=== PATIENT | female | born 1975 | race American Indian/Alaskan Native ===

== ENCOUNTER 2017-05-05 18:05 | Emergency (ER) | payer SELFPAY ==
[2017-05-05 18:47] LABS: Basophils # (Auto) 0.1 K/mm3 (0.0-0.1); Basophils % (Auto) 0.9 % (0.0-1.8); Eosinophils # (Auto) 0.3 K/mm3 (0.0-0.4); Eosinophils % (Auto) 3.2 % (0.0-4.3); Hematocrit 42.4 % (30.3-42.9); Hemoglobin 14.3 gm/dl (10.1-14.3); Lymphocytes % (Auto) 24.8 % (13.4-35.0); Mean Corpuscular HGB Conc 34 % (30-34); Mean Corpuscular Hemoglobin 32 pg (28-32); Mean Corpuscular Volume 96 fl (79-97); Monocytes # (Auto) 0.5 K/mm3 (0.0-0.8); Monocytes % (Auto) 5.8 % (0.0-7.3); Platelet Count 262 K/mm3 (140-440); Red Blood Count 4.43 M/mm3 (3.65-5.03); Red Cell Distribution Width 12.9 % (13.2-15.2)
[2017-05-05 18:57] LABS: BUN/Creatinine Ratio 16; Blood Urea Nitrogen 8 mg/dL (7-17); Calcium 8.5 mg/dL (8.4-10.2); Hemolysis Index 16
[2017-05-05] MEDS ORDERED: NORCO 7.5/325 PO ONE (21:30)
[2017-05-05] MEDS ORDERED: XANAX PO ONE (21:30)
--- NOTE | 2017-05-05 21:31 | Emergency Department Report ---
ED Back Pain/Injury HPI - General Chief Complaint: Back Pain/Injury Stated Complaint: BACK PAIN Time Seen by Provider: 05/05/17 20:43 Source: patient Limitations: No Limitations - History of Present Illness Initial Comments: This is a 41 y.o. female that presents with chronic low back pain. Patient recently moved here from [place]. She tried to get refills but Marcella advised to f /u in ER for refills good for [place]. Patient states pain is worse than usual from the drive down yesterday. She is currently followed by orthopedics in [place] and they are trying to schedule surgery but she want to get a second opinion here. She is worried there is possibly an infection because she didn't have surgery. Currently taking carisoprodol 350 mg tid, trazodone 100 mg po daily, benzonatate 100 mg po tid PRN, alprazolam 0.25 mg po tid PRN. MD Complaint: back pain -: year(s) Similar Symptoms Previously: Yes Place: home Radiation: none Severity: moderate Severity scale (0 -10): 10 Quality: sharp, aching Consistency: constant Improves With: immobilization Worsens With: movement, sitting upright, walking Context: unknown Associated Symptoms: difficulty walking. denies: confusion, weakness, chest pain, numbness, cough, difficulty urinating, diaphoresis, incontinence, fever/ chills, constipation, headaches, abdominal pain, loss of appetite, malaise, nausea/vomiting, rash, seizure, shortness of breath, syncope Treatments Prior to Arrival: prescription analgesics - Related Data Previous Rx's Medication Instructions Recorded Last Taken Type ALPRAZolam [Xanax TAB] 0.25 mg PO TID PRN #20 tab 05/05/17 Unknown Rx Benzonatate [Tessalon Perle] 100 mg PO TID PRN #30 capsule 05/05/17 Unknown Rx Carisoprodol [Soma] 350 mg PO TID PRN #20 tablet 05/05/17 Unknown Rx traMADol [Ultram 50 MG tab] 50 mg PO Q6HR PRN #20 tablet 05/05/17 Unknown Rx traZODone [Desyrel] 100 mg PO QHS #30 tablet 05/05/17 Unknown Rx Allergies Allergy/AdvReac Type Severity Reaction Status Date / Time aspirin Allergy Hives Verified 03/25/18 18:24 clindamycin Allergy Unknown Verified 05/05/17 18:24 ketorolac [From Toradol] Allergy Hives Verified 05/05/17 18:24 ED Review of Systems ROS: Stated complaint: BACK PAIN Other details as noted in HPI Constitutional: denies: chills, fever Respiratory: denies: cough, shortness of breath, wheezing Cardiovascular: denies: chest pain, palpitations Gastrointestinal: denies: abdominal pain, nausea, diarrhea Musculoskeletal: back pain (low back pain). denies: joint swelling, arthralgia Neurological: denies: headache, weakness, numbness, paresthesias Psychiatric: anxiety. denies: depression, auditory hallucinations, visual hallucinations, homicidal thoughts, suicidal thoughts ED Past Medical Hx - Past Medical History chronic back pain ED Back Pain Physical Exam - Exam General: Vital signs noted. No distress. Alert and acting appropriately. Back/Abdomen: Yes Sacroiliac Tenderness (bilateral), Yes Straight Leg Raise Pain (on right), No Abdominal Tenderness, No Perithoracic Tenderness, No Perilumbar Tenderness, No Flank Tenderness Neuro: Yes Normal Sensation, Yes Normal DTR's, Yes Normal Gait, No Motor Weakness ED Course Vital Signs 05/05/17 18:09 Temperature 99.1 F Pulse Rate 102 H Respiratory 16 Rate Blood Pressure 147/80 O2 Sat by Pulse 100 Oximetry ED Medical Decision Making - Lab Data Result diagrams: 05/05/17 18:29 05/05/17 18:29 - Medical Decision Making This is a 41 y.o. female presents with chronic low back pain and medication refills. Patient was examined by me. Obtained CBC and BMP, all normal. Given norco 7.5/325 mg po once, xanax 0.25 mg po once in ER. No radiograph ordered. Patient informed of results. Plan discussed with patient to discharge home with refills and referrals to pain management, orthopedics, and psychology. She agrees with ER plan. Patient discharged home in stable condition. Refills soma, trazadone, xanax, and benzonatate and start tramadol 50 mg po q6h #20, 0 refills. Follow up with PCP. Critical care attestation.: If time is entered above; I have spent that time in minutes in the direct care of this critically ill patient, excluding procedure time. ED Disposition Clinical Impression: Anxiety Low back pain Qualifiers: Chronicity: chronic Back pain laterality: bilateral Sciatica presence: with sciatica Sciatica laterality: sciatica of right side Qualified Code(s): M54.41 - Lumbago with sciatica, right side Disposition: TO HOME OR SELFCARE Is pt being admited?: No Does the pt Need Aspirin: No Condition: Stable Instructions: Arthralgia (ED), Chronic Back Pain (ED), Anxiety (ED) Additional Instructions: Rest Use ice or heat on affected area for 20 minutes and off for 2 hours. Take pain medication as needed for pain. Don't drive or operate heavy machinery while taking muscle relaxers because they may cause drowsiness. Follow up with Primary Care Provider in 2-3 days. Prescriptions: traZODone [Desyrel] 100 mg PO QHS #30 tablet ALPRAZolam [Xanax TAB] 0.25 mg PO TID PRN #20 tab PRN Reason: Anxiety Benzonatate [Tessalon Perle] 100 mg PO TID PRN #30 capsule PRN Reason: Cough Carisoprodol [Soma] 350 mg PO TID PRN #20 tablet PRN Reason: Muscle Spasm traMADol [Ultram 50 MG tab] 50 mg PO Q6HR PRN #20 tablet PRN Reason: Pain Referrals: GUNNER COLVIN MD [Primary Care Provider] - [facility] - 3-5 Days [facility] [Outside] - 3-5 Days [facility] [Outside] - 3-5 Days DUTCH PATE MD [Staff Physician] - 3-5 Days Time of Disposition: 22:07 Print Language: CZECH
[2017-05-05 22:19] VITALS: BP 129/88
== END 2017-05-05 22:17 | disposition home or self-care (01) ==
LOC: ED 18:05
DX: M54.5 Low back pain (principal); F41.9 Anxiety disorder, unspecified; Z88.1 Allergy status to other antibiotic agents; Z88.6 Allergy status to analgesic agent
CPT/HCPCS: 36415; 80048; 85025; 93005; 93010; 99283

== ENCOUNTER 2017-05-20 16:17 | Emergency (ER) | payer SELFPAY ==
[2017-05-20 16:32] VITALS: BP 136/84
--- NOTE | 2017-05-20 19:20 | Emergency Department Report ---
ED Back Pain/Injury HPI - General Chief Complaint: Back Pain/Injury Stated Complaint: CHEST/BACK PAIN Time Seen by Provider: 05/20/17 19:08 Source: patient Limitations: No Limitations - History of Present Illness Initial Comments: This is a 41 year-old female nontoxic, well nourished in appearance, no acute signs of distress presents to the ED with c/o of chronic low back pain. Patient stated that she recently moved from [place] and has been following Arabella Garay for chronic back pain. Patient stated that she usually takes carisoprodol 350 mg tid, trazodone 100 mg po daily and alprazolam 0.25 mg po tid PRN. Patient also stated that Dr. Lubin provides her with Hydrocodone for pain. Patient stated that her doctor tried to prescribe her medications but was not able to due to long distance. Patient also stated that she can not follow- up with a doctor or pain medicine doctor due to [place] medicaid. Patient denies any back pain, shortness of breathe, fever, chills, headache, nausea, bladder or bowel instability, vomiting, numbness, tingling. Patient denies any trauma. MD Complaint: back pain Similar Symptoms Previously: Yes Radiation: right leg Severity: mild Severity scale (0 -10): 8 Quality: aching Consistency: constant Improves With: none Worsens With: none Associated Symptoms: denies other symptoms. denies: confusion, weakness, chest pain, numbness, difficulty walking, cough, difficulty urinating, diaphoresis, incontinence, fever/chills, constipation, headaches, abdominal pain, loss of appetite, malaise, nausea/vomiting, rash, seizure, shortness of breath, syncope - Related Data Previous Rx's Medication Instructions Recorded Last Taken Type ALPRAZolam [Xanax TAB] 0.25 mg PO TID PRN #20 tab 05/05/17 Unknown Rx Benzonatate [Tessalon Perle] 100 mg PO TID PRN #30 capsule 05/05/17 Unknown Rx Carisoprodol [Soma] 350 mg PO TID PRN #20 tablet 05/05/17 Unknown Rx traMADol [Ultram 50 MG tab] 50 mg PO Q6HR PRN #20 tablet 05/05/17 Unknown Rx traZODone [Desyrel] 100 mg PO QHS #30 tablet 05/05/17 Unknown Rx ALPRAZolam [Xanax TAB] 0.25 mg PO TID PRN #9 tab 05/20/17 Unknown Rx Acetaminophen/Codeine [Tylenol 1 tab PO Q6H PRN #12 tab 05/20/17 Unknown Rx /Codeine # 3 tab] Carisoprodol [Soma] 350 mg PO QID #20 tablet 05/20/17 Unknown Rx Allergies Allergy/AdvReac Type Severity Reaction Status Date / Time aspirin Allergy Hives Verified 05/05/17 18:24 clindamycin Allergy Unknown Verified 05/05/17 18:24 ketorolac [From Toradol] Allergy Hives Verified 05/05/17 18:24 ED Review of Systems ROS: Stated complaint: CHEST/BACK PAIN Other details as noted in HPI Constitutional: denies: chills, fever Eyes: denies: eye pain, eye discharge, vision change ENT: denies: ear pain, throat pain Respiratory: denies: cough, shortness of breath, wheezing Cardiovascular: denies: chest pain, palpitations Endocrine: no symptoms reported Gastrointestinal: denies: abdominal pain, nausea, diarrhea Genitourinary: denies: urgency, dysuria, discharge Musculoskeletal: back pain. denies: joint swelling, arthralgia Skin: denies: rash, lesions Neurological: denies: headache, weakness, paresthesias Psychiatric: denies: anxiety, depression Hematological/Lymphatic: denies: easy bleeding, easy bruising ED Past Medical Hx - Past Medical History Previous Medical History?: Yes Hx Hypertension: Yes Hx Arthritis: Yes Hx Asthma: Yes Additional medical history: chronic back pain - Surgical History Past Surgical History?: No Additional Surgical History: D&C - Social History Smoking Status: Current Every Day Smoker Substance Use Type: Prescribed - Medications Home Medications: Home Medications Medication Instructions Recorded Confirmed Last Taken Type ALPRAZolam [Xanax TAB] 0.25 mg PO TID PRN #20 tab 05/05/17 Unknown Rx Benzonatate [Tessalon Perle] 100 mg PO TID PRN #30 capsule 05/05/17 Unknown Rx Carisoprodol [Soma] 350 mg PO TID PRN #20 tablet 05/05/17 Unknown Rx traMADol [Ultram 50 MG tab] 50 mg PO Q6HR PRN #20 tablet 05/05/17 Unknown Rx traZODone [Desyrel] 100 mg PO QHS #30 tablet 05/05/17 Unknown Rx ALPRAZolam [Xanax TAB] 0.25 mg PO TID PRN #9 tab 05/20/17 Unknown Rx Acetaminophen/Codeine [Tylenol 1 tab PO Q6H PRN #12 tab 05/20/17 Unknown Rx /Codeine # 3 tab] Carisoprodol [Soma] 350 mg PO QID #20 tablet 05/20/17 Unknown Rx ED Physical Exam - General Limitations: No Limitations General appearance: alert, in no apparent distress - Head Head exam: Present: atraumatic, normocephalic - Eye Eye exam: Present: normal appearance Pupils: Present: normal accommodation - ENT ENT exam: Present: normal exam, mucous membranes moist - Neck Neck exam: Present: normal inspection, full ROM - Respiratory Respiratory exam: Present: normal lung sounds bilaterally. Absent: respiratory distress, wheezes, rales, rhonchi, stridor - Cardiovascular Cardiovascular Exam: Present: regular rate, normal rhythm, normal heart sounds. Absent: irregular rhythm, systolic murmur, diastolic murmur, rubs, gallop - GI/Abdominal GI/Abdominal exam: Present: soft, normal bowel sounds - Extremities Exam Extremities exam: Present: normal inspection, full ROM, normal capillary refill - Back Exam Back exam: Present: normal inspection, full ROM - Neurological Exam Neurological exam: Present: alert, oriented X3, normal gait - Psychiatric Psychiatric exam: Present: normal affect, normal mood - Skin Skin exam: Present: warm, dry, intact, normal color. Absent: rash ED Course Vital Signs 05/20/17 16:27 Temperature 98.6 F Pulse Rate 86 Respiratory 18 Rate Blood Pressure 136/84 O2 Sat by Pulse 99 Oximetry - Reevaluation(s) Reevaluation #1: 05/20/17 19:39 Patient is speaking in full sentences with no signs of distress noted. - Consultations Consultation #1: 05/20/17 19:39 Patient was discussed with Arabella Garay at [phone] and stated that she does prescribed a low dose of these medications. She also stated that she tried to get a urine drug screen and patient did not provide it. Dr. Lubin also stated that she did not receive any information from orthopedic about any surgery. ED Medical Decision Making - Medical Decision Making Patient is stable and was examined by me. Bailey FERRYBOAT CAPTAIN has only 3 prescriptions. Due to no PCP due to insurance, I will give patient refills for 3 days so she can have enough time to follow up with PCP. Patient was discussed with her pervious doctor. Patient was referred to Follow-up with a primary care doctor in 3-5 days or if symptoms worsen and continue return to emergency room as soon as possible. At time of discharge, the patient does not seem toxic or ill in appearance. No acute signs of distress noted. Patient agrees to discharge treatment plan of care. No further questions noted by the patient. Critical care attestation.: If time is entered above; I have spent that time in minutes in the direct care of this critically ill patient, excluding procedure time. ED Disposition Clinical Impression: Medication refill Chronic low back pain Qualifiers: Back pain laterality: bilateral Sciatica presence: with sciatica Sciatica laterality: bilateral sciatica Qualified Code(s): M54.42 - Lumbago with sciatica , left side; M54.41 - Lumbago with sciatica, right side; G89.29 - Other chronic pain Disposition: DC-01 TO HOME OR SELFCARE Is pt being admited?: No Does the pt Need Aspirin: No Condition: Stable Instructions: Chronic Back Pain (ED) Additional Instructions: Follow-up with a primary care doctor in 3-5 days or if symptoms worsen and continue return to emergency room as soon as possible. Prescriptions: Acetaminophen/Codeine [Tylenol /Codeine # 3 tab] 1 tab PO Q6H PRN #12 tab PRN Reason: Pain ALPRAZolam [Xanax TAB] 0.25 mg PO TID PRN #9 tab PRN Reason: Anxiety Carisoprodol [Soma] 350 mg PO QID #20 tablet Referrals: PRIMARY CARE, [Primary Care Provider] - 3-5 Days DEMETRIUS ALVA MD [Staff Physician] - 3-[address] [facility] [Outside] - 3-5 Days [facility] [Outside] - 3-5 Days
[2017-05-20] MEDS ORDERED: TYLENOL PO ONE (19:39)
== END 2017-05-20 19:52 | disposition home or self-care (01) ==
LOC: ED 16:17
DX: G89.29 Other chronic pain (principal); M54.5 Low back pain; R07.9 Chest pain, unspecified; I10 Essential (primary) hypertension; M19.90 Unspecified osteoarthritis, unspecified site; F17.200 Nicotine dependence, unspecified, uncomplicated; Z88.6 Allergy status to analgesic agent; Z88.1 Allergy status to other antibiotic agents
CPT/HCPCS: 93005; 93010; 99282

== ENCOUNTER 2017-06-05 12:51 | Emergency (ER) | payer MEDICAID ==
[2017-06-05 13:02] VITALS: BP 138/88
[2017-06-05] MEDS ORDERED: NORCO 7.5/325 PO ONE (14:07)
[2017-06-05] MEDS ORDERED: ATIVAN PO ONE (14:07)
--- NOTE | 2017-06-05 14:07 | Emergency Department Report ---
ED General Adult HPI - General Chief complaint: Back Pain/Injury Stated complaint: ANXIETY AND BACK PAIN Time Seen by Provider: 06/05/17 13:44 Source: patient Mode of arrival: Ambulatory Limitations: No Limitations - History of Present Illness Initial comments: Patient is a 41-year-old female who is presenting with chronic pain. Patient says she has chronic back pain secondary to a herniated disc and broke several ribs and a fall January 2017. Patient states she is out of her hydrocodone and also is out of her Xanax which she takes 3 times a day for anxiety. Patient states she went to [facility] yesterday and was seen but was not given refills of any of her medications. Patient is seen at the pain as a 10 out of 10 in severity located in the mid to lower back - Related Data Previous Rx's Medication Instructions Recorded Last Taken Type ALPRAZolam [Xanax TAB] 0.25 mg PO TID PRN #20 tab 05/05/17 Unknown Rx Benzonatate [Tessalon Perle] 100 mg PO TID PRN #30 capsule 05/05/17 Unknown Rx Carisoprodol [Soma] 350 mg PO TID PRN #20 tablet 05/05/17 Unknown Rx traMADol [Ultram 50 MG tab] 50 mg PO Q6HR PRN #20 tablet 05/05/17 Unknown Rx traZODone [Desyrel] 100 mg PO QHS #30 tablet 05/05/17 Unknown Rx ALPRAZolam [Xanax TAB] 0.25 mg PO TID PRN #9 tab 05/20/17 Unknown Rx Acetaminophen/Codeine [Tylenol 1 tab PO Q6H PRN #12 tab 05/20/17 Unknown Rx /Codeine # 3 tab] Carisoprodol [Soma] 350 mg PO QID #20 tablet 05/20/17 Unknown Rx Allergies Allergy/AdvReac Type Severity Reaction Status Date / Time aspirin Allergy Hives Verified 06/05/17 12:57 clindamycin Allergy Unknown Verified 06/05/17 12:57 ketorolac [From Toradol] Allergy Hives Verified 06/05/17 12:57 ED Review of Systems ROS: Stated complaint: ANXIETY AND BACK PAIN Other details as noted in HPI Comment: All other systems reviewed and negative ED Past Medical Hx - Past Medical History Hx Hypertension: Yes Hx Arthritis: Yes Hx Asthma: Yes Additional medical history: chronic back pain - Surgical History Additional Surgical History: D&C - Social History Smoking Status: Current Every Day Smoker Substance Use Type: None - Medications Home Medications: Home Medications Medication Instructions Recorded Confirmed Last Taken Type ALPRAZolam [Xanax TAB] 0.25 mg PO TID PRN #20 tab 05/05/17 Unknown Rx Benzonatate [Tessalon Perle] 100 mg PO TID PRN #30 capsule 05/05/17 Unknown Rx Carisoprodol [Soma] 350 mg PO TID PRN #20 tablet 05/05/17 Unknown Rx traMADol [Ultram 50 MG tab] 50 mg PO Q6HR PRN #20 tablet 05/05/17 Unknown Rx traZODone [Desyrel] 100 mg PO QHS #30 tablet 05/05/17 Unknown Rx ALPRAZolam [Xanax TAB] 0.25 mg PO TID PRN #9 tab 05/20/17 Unknown Rx Acetaminophen/Codeine [Tylenol 1 tab PO Q6H PRN #12 tab 05/20/17 Unknown Rx /Codeine # 3 tab] Carisoprodol [Soma] 350 mg PO QID #20 tablet 05/20/17 Unknown Rx ED Physical Exam - General Limitations: No Limitations General appearance: alert, in no apparent distress, other (tearful) - Head Head exam: Present: atraumatic, normocephalic - Eye Eye exam: Present: normal appearance - ENT ENT exam: Present: mucous membranes moist - Neck Neck exam: Present: normal inspection - Respiratory Respiratory exam: Present: normal lung sounds bilaterally. Absent: respiratory distress - Cardiovascular Cardiovascular Exam: Present: regular rate, normal rhythm. Absent: systolic murmur, diastolic murmur, rubs, gallop - GI/Abdominal GI/Abdominal exam: Present: soft, normal bowel sounds - Extremities Exam Extremities exam: Present: normal inspection - Back Exam Back exam: Present: normal inspection - Neurological Exam Neurological exam: Present: alert, oriented X3 - Psychiatric Psychiatric exam: Present: normal affect, normal mood - Skin Skin exam: Present: warm, dry, intact, normal color. Absent: rash ED Course Vital Signs 06/05/17 12:57 Temperature 98.4 F Pulse Rate 100 H Respiratory 18 Rate Blood Pressure 138/88 O2 Sat by Pulse 100 Oximetry ED Medical Decision Making - Medical Decision Making He was deemed nonmedical emergency however she does have Medicaid. Patient will be given Ativan as well as one hydrocodone here will not be given prescription secondary to this issue be a chronic issue. Patient was given a primary care physician is weekend receptionist Dr. Perez Critical care attestation.: If time is entered above; I have spent that time in minutes in the direct care of this critically ill patient, excluding procedure time. ED Disposition Clinical Impression: Chronic pain Disposition: DC-01 TO HOME OR SELFCARE Is pt being admited?: No Does the pt Need Aspirin: No Condition: Stable Referrals: HARESH PEREZ MD [Staff Physician] - 3-5 Days
== END 2017-06-05 15:07 | disposition home or self-care (01) ==
LOC: ED 12:51
DX: M54.5 Low back pain (principal); G89.29 Other chronic pain; F41.9 Anxiety disorder, unspecified; I10 Essential (primary) hypertension; M19.90 Unspecified osteoarthritis, unspecified site; J45.909 Unspecified asthma, uncomplicated; F17.200 Nicotine dependence, unspecified, uncomplicated; Z88.1 Allergy status to other antibiotic agents; Z88.6 Allergy status to analgesic agent
CPT/HCPCS: 99282